=== PATIENT | female | born 1940 | race Caucasian/White ===

== ENCOUNTER 2023-07-29 05:55 | Outpatient (REF) | payer MEDICARE, SELFPAY | END 2023-07-29 05:56 | disposition home or self-care (01) | LOC: HO.MMNH2L 05:55 | PROVIDERS: Visit Provider Family Medicine | DX: Z13.89 Encounter for screening for other disorder (principal) ==

== ENCOUNTER 2024-11-09 05:58 | Outpatient (REF) | payer MEDICARE, SELFPAY ==
--- OUTSIDE RECORDS SUMMARY | 2024-06-17 17:30 | XMS_ITS ---
Author Organization [facility] Address [address] [place] [address] Care Team Providers Care Lumber Tripper Name Role Phone MaldonadoKat Primary Care Provider Unavailabl e Migration, Provider Unavailable Unavailable REASON FOR VISIT [facility] Conversion Encounter Medications Medication SIG (Take, Route, Frequency, Duration) Notes Start Date End Date Status Vitamin D3 *Please review a nd pick correct strength-formulatio n from Springan options. If intended option is not shown, discontinue and re-order from Quick Search* Active Multivitamin *Please review a nd pick correct strength-formulatio n from Springan options. If intended option is not shown, discontinue and re-order from Quick Search* Active Warfarin Sodium 5 MG Tablet 1 tab(s) orally once a day; Duration: 30 day(s) Active Propranolol HCl 20 MG Tablet 1 tab(s) orally 2 times a day; Duration: 30 day(s) Active metFORMIN HCl ER 500 MG Tablet Extended Release 24 Hour 1 tab(s) orally once a day; Duration: 30 day(s) Active Gabapentin 600 MG/24 HOURS TABLET, EXTENDED RELEASE 1 TAB(S) ORALLY ONCE A DAY; Duration: 30 DAY(S) *Please review and pick correct strength-formulatio n from Springan options. If intended option is not shown, discontinue and re-order from Quick Search* Active Lisinopril 10 MG Tablet 1 tab(s) orally once a day; Duration: 30 day(s) Active Encounters Encounter Location Date Provider Diagnosis [facility] [address] [facility] [place] [address] 06/17/2024 Provider Migration Plan Of Treatment No Information Progress Notes * Dilcia DEL CASTILLODOB: [birth year] (84 yo F)Acc No.[id number]:06/17/2024 Patient: Dilcia Haynes Provider: :1940 A ge:84 Y S ex:Female Date:06/17/2024 Address:[address] [place] [address] Pcp:Kat Maldonado Subjective: * Chief Complaints: * M [facility] Conversion Encounter * Medications: T akingmetFORMIN HCl ER 500 MG Tablet Extended Release 24 Hour 1 tab(s) orally once a day Warfarin Sodium 5 MG Tablet 1 tab(s) orally once a day Propranolol HCl 20 MG Tablet 1 tab(s) orally 2 times a day Gabapentin 600 MG/24 HOURS TABLET, EXTENDED RELEASE 1 TAB(S) ORALLY ONCE A DAY , Notes to Pharmacist: *Please review and pick correct strength-formulation from WealthEnginespan options. If intended option is not shown, discontinue and re-order from Quick Search*Lisinopril 10 MG Tablet 1 tab(s) orally once a day Vitamin D3 , Notes to Pharmacist: *Please review and pick correct strength-formulation from Medispan options. If intended option is not shown, discontinue and re-order from Quick Search*Multivitamin , Notes to Pharmacist: *Please review and pick correct strength-formulation from Medispan options. If intended option is not shown, discontinue and re-order from Quick Search*Taking metFORMIN HCl ER 500 MG Tablet Extended Release 24 Hour 1 tab(s) orally once a day Taking Warfarin Sodium 5 MG Tablet 1 tab(s) orally once a day Taking Propranolol HCl 20 MG Tablet 1 tab(s) orally 2 times a day Taking Gabapentin 600 MG/24 HOURS TABLET, EXTENDED RELEASE 1 TAB(S) ORALLY ONCE A DAY , Notes to Pharmacist: *Please review and pick correct strength-formulation from Medispan options. If intended option is not shown, discontinue and re-order from Quick Search*Taking Lisinopril 10 MG Tablet 1 tab(s) orally once a day Taking Vitamin D3 , Notes to Pharmacist: *Please review and pick correct strength-formulation from Medispan options. If intended option is not shown, discontinue and re-order from Quick Search*Taking Multivitamin , Notes to Pharmacist: *Please review and pick correct strength-formulation from Medispan options. If intended option is not shown, discontinue and re-order from Quick Search* * Electronic signature of Prov ider Migration on 11/09/2024 at 05:01 AM CDT Sign off status: Pending * Provider: Date: 06/17/2024 Generated for Jeff cheema/Josee/Max on: 11/09/2024 05:01 AM CDT
[2024-11-09 06:00] LABS: MANUAL DIFF FLAG NO
--- OUTSIDE RECORDS SUMMARY | 2024-11-09 06:01 | XMS_ITS | Encounter Summary ---
Author Organization [facility] Address [address] [place] [id number] Phone Care Team Providers Care Cookee Name Role Phone Louise Fuentes MD Primary Care Provider Tabby Toro Primary Care Provider Pcp, Unknown Primary Care Provider Unavailabl e Tabby Toro Primary Care Provider Hong Mcmahan NP Primary Care Pr ovider Encounter Details Date Type Department Care Team (Late st Contact Info) Description 04/01/2022 Transcribe Orders [facility] Specimen Processing [address] [place] [address] Austin Sarmiento MD [address] [facility], [address] [place] [address] Social History Tobacco Use Types Packs/Day Years Used Date Smoking Tobacco: Never Smokeless Tobacco: Never Alcohol Use Standard Drinks/Week Comments Not Currently 0 (1 standard drink = 0.6 oz pur e alcohol) Comments Unknown Sex and Gender Information Value Date Recorded Sex Assigned at Female 11/06/2019 2:14 PM EDT Legal Sex Female 10:13 PM EDT Gender Identity Female 11/06/2019 2:14 PM EDT Sexual Orientation Straight 11/06/2019 2: 15 PM EDT documented as of this encounter Plan of Treatment Not on file documented as of this encounter Visit Diagnoses Not on filedocumented in this encounter Additional Health Concerns Infection Onset Date Last Indicated Resolved Time CoV-Risk 05/02/2022 05/02/2022 05/03/2022 12:4 5 PM EST CoV-Risk Comment:Per note documentation 02/28/2023 03/03/2023 3:20 PM EST CoV-Risk Comment:Neg covid 04/30/2023 04/30/2023 05/04/2023 8:[address] VRE 04/30/2023 12/08/2023 07/24/2024 10:2 5 AM EDT MDR-GN 06/26/2023 11/04/2024 CoV-Risk Comment:Per note documentation 11/06/2023 11/06/2023 11:45 AM EDT CoV-Risk Comment:Per note documentation 05/12/2024 05/12/2024 3:32 PM EST CoV-Risk Comment:Per note documentation 11/05/2024 11/05/2024 3:13 PM EDT documented as of this encounter Care Teams [place]e Relationship Specialty Start Date End Date Louise Fuentes MD [email or web address] PCP - General Family Medicine 01/21/20 11/18/22 Tabby Toro PA [address] [place] [id number] [email or web address] PCP - General Physician Cigar Bander 11/19/22 09/16/23 Pcp, Unknown PCP - General 09/17/23 10/31/23 Tabby Toro PA [address] [place] [address] [email or web address] PCP - General Physician Cigar Bander 11/01/23 10/08/24 Hong Mcmahan NP [address] [place] [address] PCP - General Nurse Practitioner 10/09/24 documented as of this encounter Additional Source Comments The information contained in this document represents components of the legal health record. It is not the complete legal health record.[facility]
[2024-11-09 06:28] LABS: Hematocrit 32.9 % (37.0-47.0); Hemoglobin 10.8 g/dl (12.0-16.0); Imm Gran Abs Auto 0.01 X10*3/uL (0.00-0.03); Imm Gran Pct Auto 0.2 % (0.0-0.4); Lymphocytes Absolute Auto 1.4 X10*3/uL (1.2-4.9); Mean Corpuscular HGB Conc 32.8 g/dl (31.0-35.0); Mean Corpuscular Hemoglobin 31.2 pg (27.0-33.0); Mean Corpuscular Volume 95.1 fL (80.0-98.0); NRBC Abs Auto 0.000 X10*3/uL (0.0-0.012); NRBC Pct Auto 0.0 /100WBC (0.0-0.2); Platelet Count 214 X10*3/uL (160-400); Red Blood Count 3.46 X10*6/uL (4.20-5.50); White Blood Count 5.2 X10*3/uL (4.8-10.8)
[2024-11-09 06:34] LABS: Hemoglobin A1C 112.2170 umol/L; Total Hemoglobin (HGBA1C) 2921.8175 umol/L
[2024-11-09 06:45] LABS: Alanine Aminotransferase 9 U/L (0-31); Albumin Level 2.9 g/dL (3.5-5.0); Alkaline Phosphatase 67 U/L (39-117); Anion Gap 11 (12-20); Aspartate Amino Transferase 18 U/L (5-31); Blood Urea Nitrogen 28 mg/dL (9-16); Calcium 10.2 mg/dL (8.4-10.2); Carbon Dioxide 25 mmol/L (22-29); Chloride 110 mmol/L (96-108); Estimated Glomerular Filt Rate 55; Potassium 4.9 mmol/L (3.3-5.1); Sodium 141 mmol/L (135-145); Total Protein 6.2 g/dL (6.5-8.0)
== END 2024-11-09 05:59 | disposition home or self-care (01) ==
LOC: HO.MMNH2L 05:58
PROVIDERS: Visit Provider Student in an Organized Health Care Education/Training Program
DX: E11.9 Type 2 diabetes mellitus without complications (principal)
CPT/HCPCS: 36415; 80053; 83036; 85025

== ENCOUNTER 2024-11-09 20:17 | Emergency (ER) | payer MEDICARE, SELFPAY ==
[2024-11-09 20:28] VITALS: BP 140/76; PULSE 67; O2SAT 100
[2024-11-09 20:33] VITALS: BP 131/43; PULSE 64; RESP 16; TEMP 36.6; O2SAT 98; BMI 30.1
[2024-11-09 22:05] VITALS: BP 114/61; PULSE 73; RESP 16; TEMP 36.3; O2SAT 96
[2024-11-09 22:25] LABS: MANUAL DIFF FLAG NO
[2024-11-09 22:26] LABS: Hematocrit 33.6 % (37.0-47.0); Hemoglobin 11.3 g/dl (12.0-16.0); Imm Gran Abs Auto 0.02 X10*3/uL (0.00-0.03); Imm Gran Pct Auto 0.3 % (0.0-0.4); Lymphocytes Absolute Auto 1.9 X10*3/uL (1.2-4.9); Mean Corpuscular HGB Conc 33.6 g/dl (31.0-35.0); Mean Corpuscular Hemoglobin 31.6 pg (27.0-33.0); Mean Corpuscular Volume 93.9 fL (80.0-98.0); NRBC Abs Auto 0.000 X10*3/uL (0.0-0.012); NRBC Pct Auto 0.0 /100WBC (0.0-0.2); Platelet Count 224 X10*3/uL (160-400); Red Blood Count 3.58 X10*6/uL (4.20-5.50); White Blood Count 7.4 X10*3/uL (4.8-10.8)
[2024-11-09 22:42] LABS: Alanine Aminotransferase 11 U/L (0-31); Albumin Level 3.2 g/dL (3.5-5.0); Alkaline Phosphatase 79 U/L (39-117); Anion Gap 15 (12-20); Aspartate Amino Transferase 20 U/L (5-31); Blood Urea Nitrogen 30 mg/dL (9-16); Calcium 10.1 mg/dL (8.4-10.2); Carbon Dioxide 25 mmol/L (22-29); Chloride 107 mmol/L (96-108); Creatinine Clr Calc Pharmacy 43.6; Estimated Glomerular Filt Rate 49; Magnesium 1.9 mg/dL (1.6-2.6); Potassium 4.5 mmol/L (3.3-5.1); Sodium 142 mmol/L (135-145); Total Protein 6.9 g/dL (6.5-8.0)
[2024-11-10 00:23] VITALS: BP 121/47; PULSE 87; RESP 16; O2SAT 93
--- NOTE | 2024-11-10 00:23 | PC.NURSE ---
attempt to call report to charleen schulz and stated pt needs psych eval before being discharged as event tonight was suicide intention, pt denies si.hi.
--- NOTE | 2024-11-10 02:11 | PC.NURSE ---
late entry: pt was changed over to ligature risk attire and belongings locked into [place] shelf 4. provider and broker in charge in agreement pt does not need 1:1 sitter at this time. pt states she did not have intentions to hurt herself, states asked for these pills to be brought by son as they're $600 pills but those were samples to treat her overactive bladder, pt states she was trying to get 1 pill out of bottle but accidentally dumped half bottle into hand and grabbed 1 pill and put the rest back which snf RN agrees to seeing. pt states she has been depressed d/t many circumstances such has spouse passing 1 year ago, dealing with her overactive bladder, had grandchild recently and unable to make a quilt for them, etc. pt adamantly denies si, she is very pleasant. pt is in agreement to speak with psych as she also agrees this may help her. states she has a psychiatrist friend who takes a medication that helps with her depression and believes she can benefit from one as well. given water per request. 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 will complete med rec per snf list and provider Violet GAMBOA aware of all above.
--- NOTE | 2024-11-10 04:00 | ED.GENADULT ---
HPI - General Adult General Chief complaint: General Medical Stated complaint: Od on prescribed meds from snf Time Seen by Provider: 11/09/24 21:13 Source: patient Limitations: other (Dementia) History of Present Illness ED Provider: Conchita Daley PA-C HPI narrative: 84-year-old female with a history of dementia, diabetes, hyperlipidemia, hypertension, hypothyroidism, GERD, overactive bladder on Gemtesa who presents from [facility] given concern for SI. Per nursing report, the patient was attempting to take too much of her Gemtesa, in reality she took 1 pill. It was noted that ?one of the nurses saw her with a all of her pills in her hand?. History limited secondary to patient's dementia. The patient was sent here for medical clearance and crisis evaluation before she will be accepted back to the facility. Related Data Home Medications ?Medication ?Instructions ?Recorded ?Confirmed acetaminophen 325 mg tablet 650 mg PO QID PRN Pain (Scale 11/10/24 11/10/24 Score 1-3) atorvastatin 10 mg tablet 10 mg PO BEDTIME 11/10/24 11/10/24 escitalopram oxalate 20 mg tablet 20 mg PO DAILY 11/10/24 11/10/24 gabapentin 300 mg capsule 300 mg PO TID 11/10/24 11/10/24 levothyroxine 150 mcg tablet 150 mcg PO DAILY 11/10/24 11/10/24 metformin 500 mg tablet 500 mg PO DAILY 11/10/24 11/10/24 mirabegron 25 mg tablet,extended 25 mg PO DAILY 11/10/24 11/10/24 release 24 hr omeprazole 20 mg capsule,delayed 20 mg PO DAILY 11/10/24 11/10/24 release primidone 250 mg tablet 250 mg PO DAILY 11/10/24 11/10/24 primidone 50 mg tablet 50 mg PO BID 11/10/24 11/10/24 propranolol 20 mg tablet 20 mg PO TID 11/10/24 11/10/24 trazodone 50 mg tablet 50 mg PO BEDTIME 11/10/24 11/10/24 Allergies Allergy/AdvReac Type Severity Reaction Status Date / Time No Known Allergies Allergy Verified 11/09/24 20:37 [facility] Past Medical History Attestation statement: The following information was validated with the patient. Social History Social History Smoked in Last 30 Days: No Use of substances other than those prescribed or required for medical reasons: No Advance Directives: Yes Advance Directives Information Provided: No Advance Directives on File: No Do you have a plan to hurt others: No Plan Physical Exam ED Vital Signs: Vital Signs - 24 hr 11/10/24 06:31 11/10/24 11:12 Temperature 97.9 F Pulse Rate 65 71 Respiratory Rate 14 16 Blood Pressure 144/54 H 136/51 L Pulse Oximetry 96 98 Oxygen Delivery Method Room Air Room Air BMI result Body Mass Index 30.1 Course Reevaluation(s) Reevaluation #1: Time: 04:09 Date: 11/10/24 Provider: COOPER Cisneros Patient in physician observation for psychiatric evaluation.? No acute events reported overnight. No current complaints. VS stable.? Patient is in bed search status/pending CARE team evaluation. Will continue to monitor. Reevaluation #2: Time: 09:46 Date: 11/10/24 Provider: Jorge Villatoro MD Physician observation ended at 09:46 hours. Patient has been cleared for discharge by the CARE team. I did talk to the patient. She states that she was not suicidal or homicidal and that she did not take an overdose the patient states that the whole episode was a misunderstanding. She states that she lost 1 son to kidney cancer and that she has a another son that lives in an adjoining apartment . She states she would never kill herself and make her son do you with that type of grief. The patient will be transported back to [facility] by ambulance. Medical Decision Making Medical Decision Making MDM Narrative: 84-year-old female with a history of dementia, diabetes, hyperlipidemia, hypertension, hypothyroidism, GERD, overactive bladder on Gemtesa who presents from [facility] given concern for SI. Per nursing report, the patient was attempting to take too much of her Gemtesa, in reality she took 1 pill. It was noted that ?one of the nurses saw her with a all of her pills in her hand?. History limited secondary to patient's dementia. The patient was sent here for medical clearance and crisis evaluation before she will be accepted back to the facility. Problem: Dementia History: Per nursing report I have considered the following differential diagnoses: SI, HI, decompensated psychiatric illness, worsening dementia, staffing judgment error Plan: The facility will not take the patient back until she sees crisis, I feel this is excessive, I do not feel the patient is truly suicidal. We will screen basic labs and referred to the care team I have independently reviewed the following tests: Labs, no leukocytosis, not anemic, no electrolyte abnormality noted Lab Data 11/09/24 22:13 11/09/24 22:13 Labs: Lab Results 11/09/24 Range/Units 22:13 WBC 7.4 (4.8-10.8) X10*3/uL RBC 3.58 L (4.20-5.50) X10*6/uL Hgb 11.3 L (12.0-16.0) g/dl Hct 33.6 L (37.0-47.0) % MCV 93.9 (80.0-98.0) fL MCH 31.6 (27.0-33.0) pg MCHC 33.6 (31.0-35.0) g/dl RDW 14.4 (11.0-16.0) % Plt Count 224 (160-400) X10*3/uL MPV 9.5 (9.4-12.3) fL Immature Gran % (Auto) 0.3 (0.0-0.4) % Neut % (Auto) 56.1 (45-73) % Lymph % (Auto) 25.4 (20-40) % [place] % (Auto) 10.2 (2-11) % Eos % (Auto) 7.5 H (0-4) % Baso % (Auto) 0.5 (0-2) % Lymph # (Auto) 1.9 (1.2-4.9) X10*3/uL [place] # (Auto) 0.8 (0.1-1.2) X10*3/uL Eos # (Auto) 0.6 H (0.0-0.4) X10*3/uL Baso # (Auto) 0.0 (0.0-0.2) X10*3/uL Abs Immat Gran (auto) 0.02 (0.00-0.03) X10*3/uL Absolute Neuts (auto) 4.2 (2.0-8.3) x10*3/uL Absolute Nucleated RBC 0.000 (0.0-0.012) X10*3/uL Nucleated RBC % (auto) 0.0 (0.0-0.2) /100WBC Sodium 142 (135-145) mmol/L Potassium 4.5 (3.3-5.1) mmol/L Chloride 107 (96-108) mmol/L Carbon Dioxide 25 (22-29) mmol/L Anion Gap 15 (12-20) BUN 30 H (9-16) mg/dL Creatinine 1.07 (0.5-1.4) mg/dL Estim Creat Clear Calc 43.6 Estimated GFR 49 Random Glucose 96 (60-115) mg/dL Calcium 10.1 (8.4-10.2) mg/dL Magnesium 1.9 (1.6-2.6) mg/dL Total Bilirubin 0.1 (0.0-1.0) mg/dL AST 20 (5-31) U/L ALT 11 (0-31) U/L Alkaline Phosphatase 79 (39-117) U/L Total Protein 6.9 (6.5-8.0) g/dL Albumin 3.2 L (3.5-5.0) g/dL Discharge Plan Discharge Clinical Impression: Dementia, At risk for medication error Patient Disposition: Xfer SNF Transfer Details: [facility] Additional Instructions: You were evaluated by our CARE team clinician it was felt that you were not suicidal or at risk of harming yourself at this time therefore we are sending you back to [facility]. Since you were seen today in our Emergency Department today for treatment of a behavioral health issue, it is important after your visit that you follow up with either your behavioral health provider or a primary care doctor within 7 days.? If you have trouble finding a therapist you can reach out to [address] [phone] The National Suicide and Crisis Lifeline can be reached 7 days a week 24 hours a day.? Call 988 to speak with someone.? Return for any worsening symptoms or concerns such as thoughts of self harm or harm to others. Please call 911 if you feel your mental health is worsening.? Prescriptions: No Action metformin 500 mg tablet 500 mg PO DAILY acetaminophen 325 mg Tablet 650 mg PO QID PRN (Reason: Pain (Scale Score 1-3)) atorvastatin 10 mg Tablet 10 mg PO BEDTIME levothyroxine 150 mcg tablet 150 mcg PO DAILY gabapentin 300 mg Capsule 300 mg PO TID escitalopram oxalate 20 mg tablet 20 mg PO DAILY primidone 50 mg tablet 50 mg PO BID trazodone 50 mg tablet 50 mg PO BEDTIME primidone 250 mg tablet 250 mg PO DAILY omeprazole 20 mg capsule,delayed release(DR/EC) 20 mg PO DAILY propranolol 20 mg tablet 20 mg PO TID mirabegron 25 mg Tablet Extended Release 24 Hr 25 mg PO DAILY Interventions: ED Discharge Assessment Last Done: 11/10/24 11:12 Discharge Date/Time: 11/10/24 11:21 Print Language: Australian
[2024-11-10 06:31] VITALS: BP 144/54; PULSE 65; RESP 14; O2SAT 96
--- NOTE | 2024-11-10 10:58 | PC.NURSE ---
Patient received Gentessa from pharmacy.
[2024-11-10 11:12] VITALS: BP 136/51; PULSE 71; RESP 16; TEMP 36.6; O2SAT 98
== END 2024-11-10 11:21 | disposition skilled nursing facility (03) ==
PROVIDERS: Physician Assistant Medical; Emergency Provider Emergency Medicine Emergency Medical Services; PCP Physician Assistant
DX: F03.90 Unspecified dementia, unspecified severity, without behavioral disturbance, psychotic disturbance, mood disturbance, and anxiety (principal); R45.851 Suicidal ideations; E11.9 Type 2 diabetes mellitus without complications; Z79.84 Long term (current) use of oral hypoglycemic drugs; Z79.899 Other long term (current) drug therapy
CPT/HCPCS: 36415; 80053; 83735; 85025; 99284; S9485